=== PATIENT | female | born 1950 | race Caucasian/White ===

== ENCOUNTER → 2017-12-16 09:24 | Outpatient (REF) | payer OTHER, SELFPAY ==
[2017-12-16 15:02] LABS: ALT 37 U/L (12-78); AST 21 U/L (15-37); Albumin 4.1 g/dL (3.4-5.0); Alkaline Phosphatase 55 U/L (46-116); Anion Gap 9.4 mmol/L (3-11); BUN 18 mg/dL (7-18); Bilirubin, Total 0.9 mg/dL (0.2-1.0); CO2 24.6 mmol/L (21.0-32.0); CREATININE 0.84 mg/dL (0.55-1.02); Calcium 8.5 mg/dL (8.5-10.1); Chloride 106 mmol/L (98-107); Glucose 124 mg/dL (70-100); Sodium 140 mmol/L (136-145); Total Protein 6.8 g/dL (6.4-8.2)
[2017-12-17 13:01] LABS: Hepatitis C Ab w Rflx HCV PCR Negative (NEGAT)
== END ==
LOC: NCHCN 09:24
PROVIDERS: PCP Nurse Practitioner Family; Visit Provider Nurse Practitioner Family
DX: R03.0 Elevated blood-pressure reading, without diagnosis of hypertension (principal); R00.8 Other abnormalities of heart beat; D75.89 Other specified diseases of blood and blood-forming organs; J01.90 Acute sinusitis, unspecified; R13.10 Dysphagia, unspecified; K21.9 Gastro-esophageal reflux disease without esophagitis; G25.81 Restless legs syndrome; G47.33 Obstructive sleep apnea (adult) (pediatric)
CPT/HCPCS: 80053; 86803

== ENCOUNTER 2018-12-29 14:58 | Outpatient (REF) | payer OTHER, SELFPAY ==
[2018-12-29 21:12] LABS: Abs Immature Grans 0.02 k/cumm (0.0-0.09); Absolute Basophil Count 0.01 k/cumm (0.0-0.2); Absolute Eosinophil Count 0.14 k/cumm (0.0-0.7); Absolute Lymphocyte Count 2.02 k/cumm (1.2-3.4); Absolute Monocyte Count 0.46 k/cumm (0.11-0.7); Absolute Neutrophil Count 3.92 k/cumm (1.2-6.7); Basophils % 0.2; Eosinophils % 2.1; HCT 34.8 % (36.0-46.0); HGB 11.9 g/dL (12.0-15.5); Immature Grans % 0.3; Lymphocytes % 30.7; Mean Corp. HGB Concentration 34.2 g/dL (32.0-36.0); Mean Corpuscular Hemoglobin 33.3 pg (27.0-33.0); Mean Corpuscular Volume 97.5 fL (80-95); Mean Platelet Volume 11.4 fL (8.0-11.0); Neutrophils % 59.7; Platelet Count 223 x1000/uL (130-400); RBC 3.57 m/cumm (4.00-5.20); RBC Distribution Width 12.6 % (11.7-14.6); White Blood Cell Count 6.57 k/cumm (4.4-10.8)
[2018-12-29 21:47] LABS: Hemoglobin A1C 5.6 % (4.5-6.2)
[2018-12-29 21:54] LABS: ALT 38 U/L (12-78); AST 26 U/L (15-37); Alkaline Phosphatase 60 U/L (46-116); BUN 23 mg/dL (7-18); Bilirubin, Total 0.8 mg/dL (0.2-1.0); CREATININE 0.81 mg/dL (0.55-1.02); Calcium 8.5 mg/dL (8.5-10.1); Chloride 105 mmol/L (98-107); Glucose 144 mg/dL (70-100); Magnesium 1.8 mg/dL (1.8-2.4); Potassium 3.7 mmol/L (3.5-5.1); Sodium 141 mmol/L (136-145); Total Protein 6.8 g/dL (6.4-8.2); Vitamin B12 638 pg/mL (193-986)
[2018-12-29 22:13] LABS: Folate > 20.0 ng/mL (8.6-20.0)
== END 2018-12-29 15:18 ==
LOC: NCHCN 14:58
PROVIDERS: PCP Nurse Practitioner Family; Visit Provider Nurse Practitioner Family
DX: D75.89 Other specified diseases of blood and blood-forming organs (principal); K21.9 Gastro-esophageal reflux disease without esophagitis; R13.10 Dysphagia, unspecified; R53.83 Other fatigue; N39.3 Stress incontinence (female) (male); R03.0 Elevated blood-pressure reading, without diagnosis of hypertension; M79.671 Pain in right foot; L98.9 Disorder of the skin and subcutaneous tissue, unspecified
CPT/HCPCS: 80053; 82607; 82746; 83036; 83735; 85025

== ENCOUNTER 2019-01-25 16:42 | Outpatient (REF) | payer OTHER, SELFPAY ==
--- NOTE | 2019-01-25 15:40 | PAPFT_PTH ---
PATIENT: Delicia Arcos LOC: [facility] U#:[id number] AGE/SX: 68/F ROOM: RE01/25/[address]: Aileen Schaffer : 1950 BED: DIS: 01/25/2019 SPEC #: [id number] RECD: 01/25/19 18:33 STATUS: RG REQ #: [id number] RAMOS: 01/25/19 15:[address]: Aileen Schaffer DEPT: [facility] Cytology RECD BY: Marah Almaraz ENTERED: 01/25/19 18:33 SP TYPE: PAPFT ALEJANDRA DR: Elina Fernandez Tissues: 1 - CX/ENDOCX FOR PAP SMEARS Procedures: PAP THIN PREP/UVM Screening HPV DNA PROBE Comments: [id number]
== END 2019-01-25 17:02 ==
LOC: LBN 16:42
PROVIDERS: PCP Nurse Practitioner Family; Visit Provider Obstetrics & Gynecology Gynecology
DX: Z12.4 Encounter for screening for malignant neoplasm of cervix (principal); Z11.51 Encounter for screening for human papillomavirus (HPV)
CPT/HCPCS: 88142; 87624

== ENCOUNTER 2019-02-24 01:31 | Outpatient (CLI) | payer OTHER, SELFPAY ==
--- NOTE | 2019-02-24 11:00 | DI.MAMMO_ITS ---
EXAM: MAMMO SCREENING CLINICAL HISTORY: screening TECHNIQUE: Mammograms were interpreted according to the usual protocol including computer analysis w [employer] CAD system, tomosynthesis and C-view imaging. COMPARISON: [id number] FINDINGS: The breasts are composed of scattered areas of fibroglandular density, breast density category B. No dominant masses or microcalcifications are seen. Examination is compared with prior examinations from 2012 and 2013 and there has been no significant interval change. IMPRESSION: There is no evidence of malignancy. Yearly screening examinations are recommended. Category 1. BI-RADS Cat 1 - Negative Breast Density - Category B - Scattered areas of fibroglandular density
== END 2019-02-24 01:51 ==
PROVIDERS: PCP Nurse Practitioner Family; Visit Provider Obstetrics & Gynecology Gynecology
DX: Z12.31 Encounter for screening mammogram for malignant neoplasm of breast (principal)
CPT/HCPCS: 77063; 77067

== ENCOUNTER 2019-03-29 13:18 | Outpatient (REF) | payer OTHER, SELFPAY ==
[2019-03-29 21:01] LABS: Abs Immature Grans 0.01 k/cumm (0.0-0.09); Absolute Basophil Count 0.01 k/cumm (0.0-0.2); Absolute Eosinophil Count 0.08 k/cumm (0.0-0.7); Absolute Lymphocyte Count 1.78 k/cumm (1.2-3.4); Absolute Monocyte Count 0.36 k/cumm (0.11-0.7); Absolute Neutrophil Count 3.47 k/cumm (1.2-6.7); Basophils % 0.2; Eosinophils % 1.4; HGB 12.2 g/dL (12.0-15.5); Immature Grans % 0.2; Lymphocytes % 31.2; Mean Corp. HGB Concentration 33.9 g/dL (32.0-36.0); Mean Corpuscular Hemoglobin 33.2 pg (27.0-33.0); Mean Corpuscular Volume 98.1 fL (80-95); Monocytes % 6.3; Neutrophils % 60.7; Platelet Count 244 x1000/uL (130-400); RBC 3.67 m/cumm (4.00-5.20); RBC Distribution Width 12.7 % (11.7-14.6); White Blood Cell Count 5.71 k/cumm (4.4-10.8)
[2019-03-29 21:47] LABS: Iron 108 ug/dL (50-175); Total Iron Binding Capacity 312 ug/dL (250-450); Transferrin Sat 35 % (15-50)
== END 2019-03-29 13:38 ==
LOC: NCHCN 13:18
PROVIDERS: PCP Nurse Practitioner Family; Visit Provider Nurse Practitioner Family
DX: D75.89 Other specified diseases of blood and blood-forming organs (principal); E78.5 Hyperlipidemia, unspecified; R53.83 Other fatigue; R06.09 Other forms of dyspnea; M79.671 Pain in right foot; M25.521 Pain in right elbow; G25.81 Restless legs syndrome; G47.33 Obstructive sleep apnea (adult) (pediatric)
CPT/HCPCS: 83540; 83550; 85025

== ENCOUNTER 2019-07-06 11:29 | Outpatient (REF) | payer OTHER, SELFPAY | END 2019-07-06 11:49 | LOC: NCHCN 11:29 | PROVIDERS: PCP Nurse Practitioner Family; Visit Provider Nurse Practitioner Family | DX: R06.09 Other forms of dyspnea (principal); R53.83 Other fatigue; E83.51 Hypocalcemia; N39.3 Stress incontinence (female) (male); D75.89 Other specified diseases of blood and blood-forming organs; M25.512 Pain in left shoulder; M25.521 Pain in right elbow; M85.80 Other specified disorders of bone density and structure, unspecified site | CPT/HCPCS: 82306 ==

== ENCOUNTER 2019-08-20 10:33 | Outpatient (CLI) | payer OTHER, SELFPAY | END 2019-08-20 10:53 | PROVIDERS: PCP Nurse Practitioner Family; Visit Provider Internal Medicine Interventional Cardiology | DX: I49.3 Ventricular premature depolarization (principal); I47.1 Supraventricular tachycardia | CPT/HCPCS: 93225 ==

== ENCOUNTER 2019-08-23 09:02 | Outpatient (CLI) | payer OTHER, SELFPAY ==
--- NOTE | 2019-08-23 10:55 | W.HOLTRPT ---
Date of service: 08/23/19 Time of Service: 10:55 Holter Monitor Report Holter Monitor Note: There is a 2-day Holter monitor ordered for the indication of PVCs. ?The patient was in normal sinus rhythm for the majority of the recording. ?Patient had one episode of supraventricular tachycardia which lasted 9 beats. There were rare PACs. ?There were no episodes of ventricular tachycardia. ?There were occasional (4%) single ventricular ectopic beats as well as occasional couplets (3%) and triplets (1%). ?There were no episodes of atrial fibrillation, pauses greater than 3 seconds or evidence of high degree heart block. ?There were no patient triggered events.
== END 2019-08-23 09:22 ==
PROVIDERS: PCP Nurse Practitioner Family; Visit Provider Internal Medicine Interventional Cardiology
DX: I49.3 Ventricular premature depolarization (principal); I47.1 Supraventricular tachycardia
CPT/HCPCS: 93226

== ENCOUNTER 2019-10-18 04:12 | Outpatient (CLI) | payer OTHER, SELFPAY ==
[2019-10-19 14:18] LABS: COVID-19 RT-PCR UVMMC Result Negative (Negative)
== END 2019-10-18 04:32 ==
PROVIDERS: PCP Nurse Practitioner Family; Visit Provider Family Medicine
DX: Z11.59 Encounter for screening for other viral diseases (principal)
CPT/HCPCS: U0003

== ENCOUNTER 2019-10-20 01:38 | Outpatient (CLI) | payer OTHER, SELFPAY ==
--- NOTE | 2019-10-22 10:08 | W.PFT ---
Date of service: 10/20/19 Time of Service: 13:07 Pulmonary Function Test Result Interpretation Spirometry: Spirometry shows no evidence of obstructive airways disease, no bronchodilator response Lung Volumes: Lung volumes show no evidence of restriction Diffusion Capacity: Diffusion capacity is borderline mildly reduced, this is normal when corrected to alveolar volume Airway Pressure: Airways resistance is normal Impression Overall normal pulmonary function study there is borderline mild diffusion defect which is normal when corrected to alveolar volume. This may be an effort related phenomenon. If underlying early, developing interstitial lung disease is suspected, further clinical work-up is recommended. Clinical Correlation therefore is recommended.
== END 2019-10-20 01:58 ==
PROVIDERS: PCP Nurse Practitioner Family; Visit Provider Internal Medicine Interventional Cardiology
DX: R06.09 Other forms of dyspnea (principal); Z87.891 Personal history of nicotine dependence
CPT/HCPCS: 94060; 94726; 94729

== ENCOUNTER 2019-12-28 10:28 | Outpatient (REF) | payer OTHER, SELFPAY ==
[2019-12-28 22:04] LABS: Abs Immature Grans 0.02 10^3/uL (0.0-0.06); Absolute Basophil Count 0.01 10^3/uL (0.0-0.2); Absolute Eosinophil Count 0.05 10^3/uL (0.0-0.7); Absolute Lymphocyte Count 1.56 10^3/uL (1.2-3.4); Absolute Monocyte Count 0.22 10^3/uL (0.1-0.8); Basophils % 0.2; Eosinophils % 1.1; HCT 33.5 % (36.0-46.0); HGB 11.3 g/dL (11.2-15.7); Immature Grans % 0.4; Lymphocytes % 33.5; MCH 33.6 pg (27.0-33.0); MCHC 33.7 % (32.0-36.0); MCV 99.7 fL (80-95); MPV 11.2 fL (8.0-11.0); Monocytes % 4.7; Neutrophils % 60.1; Nucleated RBC 0 %; Platelet Count 208 10^3/uL (130-400); RBC 3.36 10^6/uL (3.93-5.22); RDW 12.4 % (11.7-14.6); RDW-SD 44.7 fL; WBC 4.66 10^3/uL (4.4-10.8)
[2019-12-28 23:04] LABS: ALT 35 U/L (14-59); AST 17 U/L (15-37); Albumin 4.2 g/dL (3.4-5.0); Alkaline Phosphatase 64 U/L (46-116); Anion Gap 14.9 mmol/L (3-11); BUN 18 mg/dL (7-18); Bilirubin, Total 0.7 mg/dL (0.2-1.0); CO2 21.1 mmol/L (21.0-32.0); CREATININE 0.77 mg/dL (0.55-1.02); Chloride 108 mmol/L (98-107); Glucose 145 mg/dL (74-106); Magnesium 1.8 mg/dL (1.8-2.4); Potassium 3.8 mmol/L (3.5-5.1); Sodium 144 mmol/L (136-145); Total Protein 6.9 g/dL (6.4-8.2); Vitamin B12 620 pg/mL (193-986)
[2019-12-28 23:05] LABS: Folate > 20.0 ng/mL (8.6-20.0)
== END 2019-12-28 10:48 ==
LOC: NCHCN 10:28
PROVIDERS: PCP Nurse Practitioner Family; Visit Provider Nurse Practitioner Family
DX: D64.9 Anemia, unspecified (principal); D75.89 Other specified diseases of blood and blood-forming organs; R53.83 Other fatigue; G25.81 Restless legs syndrome; N39.3 Stress incontinence (female) (male); R06.09 Other forms of dyspnea; K21.9 Gastro-esophageal reflux disease without esophagitis; I51.7 Cardiomegaly; M25.512 Pain in left shoulder
CPT/HCPCS: 80053; 82607; 82746; 83735; 85025

== ENCOUNTER 2020-01-05 11:47 | Outpatient (REF) | payer OTHER, SELFPAY ==
[2020-01-05 21:02] LABS: Hemoglobin A1C 5.9 % (3.8-5.6)
== END 2020-01-05 12:07 ==
LOC: NCHCN 11:47
PROVIDERS: PCP Nurse Practitioner Family; Visit Provider Nurse Practitioner Family
DX: R73.9 Hyperglycemia, unspecified (principal)
CPT/HCPCS: 83036

== ENCOUNTER 2020-01-13 04:38 | Outpatient (CLI) | payer OTHER, SELFPAY ==
--- NOTE | 2020-02-02 11:55 | RESPIRATORY ---
Cardiac Event Report Day was called and faxed to [facility].
--- NOTE | 2020-02-18 08:44 | W.CARDEVENT ---
Date of service: 02/18/20 Time of Service: 08:44 Cardiac Event Recorder Referring Provider:: judit Indications:: PVC Cardiac Event Note: This is a 30-day event recorder ordered for indication of PVCs. ?The patient was in normal sinus rhythm for the majority of the recording with an average heart rate of 80 bpm. ?There was one episode of NSVT which lasted 7 beats. ?There were frequent PVCs with evidence of bigeminy. Patient reported symptoms associated with PVCs and bigeminy. ?There were no episodes of atrial fibrillation, no pauses greater than 3 seconds and no evidence of high degree heart block.
== END 2020-01-13 04:58 ==
PROVIDERS: PCP Nurse Practitioner Family; Visit Provider Internal Medicine Interventional Cardiology
DX: I49.3 Ventricular premature depolarization (principal); I47.1 Supraventricular tachycardia; R00.8 Other abnormalities of heart beat
CPT/HCPCS: 93270

== ENCOUNTER 2020-03-06 13:40 | Outpatient (REF) | payer OTHER, SELFPAY ==
[2020-03-10 08:51] LABS: Patient Race White; SARS-CoV-2 RNA Undetected (Undetected); SARS-CoV-2 Specimen Source Nasal
== END 2020-03-06 14:00 ==
LOC: NCHCN 13:40
PROVIDERS: PCP Nurse Practitioner Family; Visit Provider Nurse Practitioner Family
DX: Z20.828 Contact with and (suspected) exposure to other viral communicable diseases (principal)
CPT/HCPCS: U0003

== ENCOUNTER 2020-03-15 01:16 | Outpatient (CLI) | payer OTHER, SELFPAY ==
--- NOTE | 2020-03-15 11:32 | DI.MAMMO_ITS ---
EXAM: MG MAMMO SCREENING CLINICAL HISTORY: screening,Z12.31 TECHNIQUE: Bilateral full field digital CC and MLO mammographic images were obtained with 3D tomosyn thesis and utilizing computer aided detection (CAD). COMPARISON: Available for comparison. FINDINGS: Masses/Architectural Distortion: Asymmetric density in the upper left breast on the MLO view. Microcalcifications: No suspicious pleomorphic-type are seen. Skin Thickening/Nipple Retraction: None. IMPRESSION: 1. Asymmetric density in the upper left breast on the MLO view. 2. Additional view of the left breast and left breast ultrasound are requested for further evaluation . BI-RADS Category 0 - Assessment Incomplete: Need additional imaging evaluation Breast Density - Category B - Scattered areas of fibroglandular density A negative radiographic report should not delay biopsy if a dominant or clinically suspicious mass is present. Up to ten percent of cancers are not identified on mammography. A negative report may reinforce clinical impression. Adenosis and dense breasts may obscure an underlying neoplasm. False positive reports average 6 to 10%. Patient will receive a letter notifying them of these results.
== END 2020-03-15 01:36 ==
PROVIDERS: PCP Nurse Practitioner Family; Visit Provider Nurse Practitioner Family
DX: Z12.31 Encounter for screening mammogram for malignant neoplasm of breast (principal); R92.8 Other abnormal and inconclusive findings on diagnostic imaging of breast
CPT/HCPCS: 77063; 77067

== ENCOUNTER 2020-03-16 00:38 | Outpatient (CLI) | payer OTHER, SELFPAY ==
--- NOTE | 2020-03-17 | DI.US_ITS ---
EXAM: MG MAMMO SCREEN CALL BACK UNI and U/S breast LT limited CLINICAL HISTORY: F/U MAMMO, ASYMMETRIC DENSITY, UPPER LT BREAST ON MLO VIEW. TECHNIQUE: Craniocaudal and mediolateral oblique Full Field Digital Mammography views of the left br east with Computer Aided Diagnosis followed by Tomosynthesis and left breast ultrasound. COMPARISON: Priors available for comparison. FINDINGS: Mammography/Tomosynthesis: Masses/Architectural Distortion: None seen. Microcalcifictions: No suspicious pleomorphic-type are seen. Skin Thickening/Nipple Retraction: None. Left breast US: Echotexture: Normal appearance of the glandular tissue. Shadowing: No suspicious foci. Cyst: None. Solid lesions: None seen. Ductal dilation: None. IMPRESSION: 1. No evidence of malignancy is noted. 2. A six-month follow-up left mammogram is recommended for re-evaluation. 3. The findings were discussed with the patient on the date of the examination. BI-RADS Category 3 - 6 month - Probably Benign Finding: Recommend follow-up mammography in 6 months Breast Density - Category B - Scattered areas of fibroglandular density A negative radiographic report should not delay biopsy if a dominant or clinically suspicious mass is present. Up to ten percent of cancers are not identified on mammography. A negative report may reinforce clinical impression. Adenosis and dense breasts may obscure an underlying neoplasm. False positive reports average 6 to 10%. Patient will receive a letter notifying them of these results.
== END 2020-03-16 00:58 ==
PROVIDERS: PCP Nurse Practitioner Family; Visit Provider Obstetrics & Gynecology Gynecology
DX: R92.8 Other abnormal and inconclusive findings on diagnostic imaging of breast (principal)
CPT/HCPCS: 76642; 77063; 77067

== ENCOUNTER 2020-09-12 01:45 | Outpatient (CLI) | payer OTHER, SELFPAY ==
--- NOTE | 2020-09-12 | DI.DEXA_ITS ---
Exam(s) XR DEXA BONE DENSITY W/WO LUCY EXAM: XR DEXA BONE DENSITY W/WO LUCY CLINICAL HISTORY: OTHER BONE DISORDER OF BONE DENSITY,M85.88 TECHNIQUE: COMPARISON: Comparison examination is 12/26/2015. FINDINGS: Lateral Spine Image: Unremarkable. No compression deformities identified. Left hip: Total T-Score: -1.2. This compares to -1.0 on the prior examination. Total Z-Score: 0.4 T- and Z-scores: Findings are consistent with osteopenia. Lumbar Spine: Total T-Score: -1.1. This compares to -2.2 on the prior examination. Total Z-Score: 1.0 T- and Z-scores: Findings consistent with osteopenia. IMPRESSION: Findings of osteopenia in the lumbar spine and left hip.
== END 2020-09-12 02:05 ==
PROVIDERS: PCP Nurse Practitioner Family; Visit Provider Nurse Practitioner Family
DX: M85.88 Other specified disorders of bone density and structure, other site (principal)
CPT/HCPCS: 77080

== ENCOUNTER 2020-09-20 02:24 | Outpatient (CLI) | payer OTHER, SELFPAY ==
--- NOTE | 2020-09-20 09:10 | DI.MAMMO_ITS ---
Exam(s) MG MAMMO DIAGNOSTIC UNI EXAM: MG MAMMO DIAGNOSTIC UNI-LEFT CLINICAL HISTORY: DIAGNOSTIC, 6 MO F/U, F/U ABNL MAMMO. TECHNIQUE: Unilateral spot mammographic images were obtained with 3D Tomosynthesistechnique and util izing computer aided detection (CAD). COMPARISON: Prior mammograms dating back to 2011, the most recent being March 2020. Ultrasound N ov2019 was also reviewed FINDINGS: Previously described finding in the left breast remains benign appearance. No new significant masses nor malignant-appearing microcalcification groups. IMPRESSION: No radiographic evidence of malignancy in left breast. Appropriate follow-up is to keep this patient yearly mammogram schedule, this implying the next bilat era mammogram would be in March 2021, with earlier imaging if a self detected breast changes note d.. The patient was informed of the findings and follow-up recommendations prior to leaving the [facility] today. BI-RADS Category 2 - Benign Findings Breast Density - Category B - Scattered areas of fibroglandular density Breast density Category C or D implies that the patient has dense breast tissue. Dense breast tissue can make it harder to find cancer on a mammogram. Dense breast tissue is also associated with an incr eased risk of breast cancer. This information about the result of the mammogram report was provided to the patient to raise their awareness. Use this report when you speak with the patient about their risks for breast cancer, which includes their family history. At that time, you may recommend additional screening tests (Ultrasoun d or MRI) as these tests may add significant information. A negative radiographic report should not delay biopsy if a dominant or clinically suspicious mass is present. Up to ten percent of cancers are not identified on mammography. A negative report may reinforce clinical impression. Adenosis and dense breasts may obscure an underlying neoplasm. False positive reports average 6 to 10%. Patient will receive a letter notifying them of these results.
== END 2020-09-20 02:44 ==
PROVIDERS: PCP Nurse Practitioner Family; Visit Provider Obstetrics & Gynecology Gynecology
DX: Z12.31 Encounter for screening mammogram for malignant neoplasm of breast (principal); R92.8 Other abnormal and inconclusive findings on diagnostic imaging of breast; N60.82 Other benign mammary dysplasias of left breast
CPT/HCPCS: 77061; 77065; G0279

== ENCOUNTER 2021-01-16 15:01 | Outpatient (REF) | payer OTHER, SELFPAY ==
[2021-01-16 20:42] LABS: Abs Immature Grans 0.02 10^3/uL (0.0-0.06); Absolute Basophil Count 0.03 10^3/uL (0.0-0.2); Absolute Eosinophil Count 0.09 10^3/uL (0.0-0.7); Absolute Lymphocyte Count 1.87 10^3/uL (1.2-3.4); Absolute Monocyte Count 0.32 10^3/uL (0.1-0.8); Absolute Neutrophil Count 2.87 10^3/uL (1.2-6.7); Basophils % 0.6; Eosinophils % 1.7; HCT 34.5 % (36.0-46.0); HGB 11.6 g/dL (11.2-15.7); Immature Grans % 0.4; MCH 33.2 pg (27.0-33.0); MCHC 33.6 % (32.0-36.0); MCV 98.9 fL (80-95); MPV 11.4 fL (8.0-11.0); Monocytes % 6.2; Neutrophils % 55.1; Nucleated RBC 0 %; Platelet Count 205 10^3/uL (130-400); RBC 3.49 10^6/uL (3.93-5.22); RDW 12.5 % (11.7-14.6); RDW-SD 44.7 fL
[2021-01-16 21:05] LABS: Hemoglobin A1C 5.8 % (<5.7)
[2021-01-16 21:26] LABS: ALT 42 U/L (14-59); AST 18 U/L (15-37); Albumin 4.5 g/dL (3.4-5.0); Alkaline Phosphatase 59 U/L (46-116); Anion Gap 11.9 mmol/L (3-11); BUN 13 mg/dL (7-18); Bilirubin, Total 0.9 mg/dL (0.2-1.0); CO2 24.1 mmol/L (21.0-32.0); CREATININE 0.8 mg/dL (0.55-1.02); Calcium 8.9 mg/dL (8.5-10.1); Chloride 108 mmol/L (98-107); Glucose 101 mg/dL (74-106); Potassium 4.2 mmol/L (3.5-5.1); Sodium 144 mmol/L (136-145); Total Protein 7.2 g/dL (6.4-8.2); Vitamin B12 653 pg/mL (193-986)
[2021-01-16 21:27] LABS: Folate > 20.0 ng/mL (8.6-20.0)
== END 2021-01-16 15:02 | disposition home or self-care (01) ==
LOC: NCHCN 15:01
PROVIDERS: PCP Nurse Practitioner Family; Visit Provider Nurse Practitioner Family
DX: R73.03 Prediabetes (principal); D64.9 Anemia, unspecified; M25.521 Pain in right elbow; G25.81 Restless legs syndrome; N39.3 Stress incontinence (female) (male); R06.09 Other forms of dyspnea; G47.33 Obstructive sleep apnea (adult) (pediatric)
CPT/HCPCS: 80053; 82607; 82746; 83036; 83735; 85025

== ENCOUNTER 2021-04-02 11:13 | Outpatient (CLI) | payer OTHER, SELFPAY ==
--- NOTE | 2021-04-02 16:00 | DI.MAMMO_ITS ---
Exam(s) MAMMO SCREENING EXAM: MAMMO SCREENING CLINICAL HISTORY: screening TECHNIQUE: Mammograms were interpreted according to the usual protocol including computer analysis w [employer] CAD system, tomosynthesis and C-view imaging. COMPARISON: 2011 through 20 Sep 2020 FINDINGS: The breasts are composed of scattered fibroglandular densities, Breast Density category B. No suspicious masses or suspicious microcalcifications are seen. Vascular calcifications are noted. No skin thickening or abnormal axillary lymph nodes are seen. There has been no significant change from prior exams. IMPRESSION: BI-RADS Category 1, Negative mammogram Yearly screening mammography is recommended. Breast Density - Category B, scattered fibroglandular densities. A negative radiographic report should not delay biopsy if a dominant or clinically suspicious mass is present. Up to ten percent of cancers are not identified on mammography. A negative report may reinforce clinical impression. Adenosis and dense breasts may obscure an underlying neoplasm. False positive reports average 6 to 10%. Patient will receive a letter notifying them of these results.
== END 2021-04-02 11:33 ==
PROVIDERS: PCP Nurse Practitioner Family; Visit Provider Obstetrics & Gynecology Gynecology
DX: Z12.31 Encounter for screening mammogram for malignant neoplasm of breast (principal)
CPT/HCPCS: 77063; 77067

== ENCOUNTER 2021-08-21 02:29 | Outpatient (CLI) | payer OTHER, SELFPAY ==
--- NOTE | 2021-08-21 10:30 | DI.US_ITS ---
APPROVED REPORT EXAM: Comprehensive 2D, Doppler, and color-flow Echocardiogram Patient Location: Out-Patient [place] Attendant: Shannon Adhikari RDCS (AE) Indications: Lt atrial enlargement, Ventricular arrhythmia Other Information Study Quality: Adequate Conclusion Normal left ventricular wall thickness and chamber size. Estimated ejection fraction is 50 to 55%. There are no segmental wall motion abnormalities Normal right ventricular size and systolic function The left atrium is moderately dilated. Right atrium is mildly dilated Normal mitral valve with mild regurgitation Normal tricuspid valve with mild regurgitation. Estimated right ventricular systolic pressure is 32 mmHg Trileaflet aortic valve without stenosis or regurgitation Wall motion Left Ventricle The left ventricle is normal size. The left ventricular systolic function is normal. The left ventric ular ejection fraction is within the normal range. There is normal left ventricular wall thickness. T here is normal LV segmental wall motion. There is no ventricular septal defect visualized. LVEF is 50 -55%. Right Ventricle The right ventricle is normal size. The right ventricular systolic function is normal. The RVSP is 31 .8 mmHg. Atria Left atrium is moderately dilated. Right atrium is mildly dilated. The interatrial septum is intact w ith no evidence for an atrial septal defect. Aortic Valve The aortic valve is normal in structure. Aortic valve is trileaflet. There is no aortic valvular sten osis. No aortic regurgitation is present. Mitral Valve The mitral valve is normal in structure. No evidence of mitral valve stenosis. Mild mitral regurgitat ion. Tricuspid Valve The tricuspid valve is normal in structure. There is no tricuspid valve stenosis. Mild tricuspid regu rgitation. Pulmonic Valve The pulmonary valve is normal in structure. There is no pulmonic valvular stenosis. Mild pulmonic reg urgitation. Great Vessels The aortic root is normal in size. The ascending aorta is normal in size. Aortic arch is normal in ca liber. IVC is normal in size and collapses >50% with inspiration. Pericardium There is no pericardial effusion. 2D Dimensions IVSD d PLAX 1.00 cm F: 0.6-1.0 LV Vol A2C d MOD 93.6 mL LVPW d PLAX 1.02 cm F: 0.6 - 1.0 LV Vol A4C d MOD 121.7 mL LVID d PLAX 5.05 cm F: 3.8 - 5.2 LA vol/ BSA A2C s A-L 38.9 mL/m2 LVDs 3.70 cm F: 2.2 - 3.5 LA vol/ BSA A4C s A-L 38.6 mL/m2 Ao Root d 2.79 cm F: 2.7 - 3.3 LA Vol/ BSA Biplane s A-L 39.5 mL/m2 RA Area A4C 13.89 cm2 LA Area A4C s MOD 22.68 cm2 RA Vol/ BSA A4C s A-L 17.5 mL/m2 LA Area A2C s MOD 22.30 cm2 Ao Asc Diam d 3.46 cm F: 2.3 - 3.1 LV EF A4C MOD 50.4 % LV EF Teichholz 50.7 % LV EF A2C MOD 50.2 % LVEF (Celaya's) 50.93 % F: 54 - 74 LV EF Biplane MOD 50.9 % LV Volume 84.43 mL F: 46 - 106 SV 55.60 mL LV Volume Index 46.13 mL/m2 F: 29 - 61 SV Index 30.40 mL/m2 LV Vol Biplane MOD 109.2 mL FS 25.90 % M-Mode TAPSE 2.78 cm (M/F) >1.7 LV Diastology MV E' medial 0.056 (>0.07 m/s) E/A Ratio 0.9 LV E/e MED 10.10 (<14) MV E Vmax 0.57 (0.4-1.3 m/s) MV E' lateral 0.088 (>0.1 m/s) MV A Vmax 0.60 (0.4-1.3 m/s) LV E/e LAT 6.45 (<14) MV E/A Ratio 0.88 MV E/E' medial 10.12 MV E/E' lateral 6.47 Aortic Valve LVOT Area 3.62 cm2 AoV Area Vmax 2.36 cm2 LVOT Vmax 1.16 m/s AoV Area/ BSA (Vmax) 1.29 cm2/m2 LVOT Mean Rafael. 0.81 m/s KANCHAN Mean Rafael. 2.50 cm2 LVOT Peak Grad 5.3 mmHg KANCHAN Mean Rafael. Index 1.37 cm2/m2 LVOT Mean Grad 2.9 mmHg LVOT VTI 0.274 m LVOT Diam s 2.10 cm AoV Vmax 1.78 m/s Velocity Ratio 0.65 AoV Mean Rafael. 1.17 m/s AoV Peak Grad 12.6 mmHg LVOT SV 99.10 mL AoV Mean Grad 6.3 mmHg AoV VTI 0.379 m AoV Area VTI 2.61 cm2 AoV Area/ BSA (VTI) 1.43 cm/m2 Mitral Valve MV DT 203 (160-240 msec) MV PHT 59 msec MV Area PHT 3.74 cm2 MV VTI 0.303 m MV Area VTI 3.27 (4.0-6.0 cm2) Pulmonary Valve PV Vmax 0.93 (0.5-1.5 m/s) RVOT Peak Gr. 2.05 mmHg PV Peak Grad 3.5 mmHg RVOT Mean Gr. 1.30 mmHg PV Mean Grad 1.8 mmHg RVOT VTI 0.185 m PV VTI 0.233 m RVOT Vmax 0.72 m/s Tricuspid Valve TR Peak Grad 28.7 mmHg TR Vmax 2.68 m/s RA Pressure 3.00 mmHg RVSP (TR) 31.8 mmHg
== END 2021-08-21 02:49 ==
PROVIDERS: PCP Nurse Practitioner Family; Visit Provider Nurse Practitioner Family
DX: I51.7 Cardiomegaly (principal); I47.0 Re-entry ventricular arrhythmia
CPT/HCPCS: 93306

== ENCOUNTER 2022-02-18 12:33 | Outpatient (REF) | payer OTHER, SELFPAY ==
[2022-02-18 16:41] LABS: Abs Immature Grans 0.01 10^3/uL (0.0-0.06); Absolute Basophil Count 0.03 10^3/uL (0.0-0.2); Absolute Eosinophil Count 0.07 10^3/uL (0.0-0.7); Absolute Lymphocyte Count 1.82 10^3/uL (1.2-3.4); Absolute Monocyte Count 0.41 10^3/uL (0.1-0.8); Basophils % 0.6; Eosinophils % 1.3; HCT 34.2 % (36.0-46.0); HGB 11.9 g/dL (11.2-15.7); Immature Grans % 0.2; Lymphocytes % 34.7; MCH 34.1 pg (27.0-33.0); MCHC 34.8 % (32.0-36.0); MCV 98 fL (80-95); Monocytes % 7.8; Neutrophils % 55.4; Platelet Count 225 10^3/uL (130-400); RBC 3.49 10^6/uL (3.93-5.22); RDW 12.3 % (11.7-14.6); RDW-SD 43.7 fL; WBC 5.24 10^3/uL (4.4-10.8)
[2022-02-18 18:15] LABS: Hemoglobin A1C 5.7 % (<5.7)
[2022-02-18 18:53] LABS: Vitamin D 25 Total 47.1 ng/mL (30-100)
[2022-02-18 18:58] LABS: ALT 35 U/L (14-59); AST 18 U/L (15-37); Albumin 4.5 g/dL (3.4-5.0); Alkaline Phosphatase 55 U/L (46-116); Anion Gap 10.6 mmol/L (3-11); BUN 18 mg/dL (7-18); Bilirubin, Total 0.9 mg/dL (0.2-1.0); CO2 26.4 mmol/L (21.0-32.0); CREATININE 0.8 mg/dL (0.55-1.02); Calcium 9.3 mg/dL (8.5-10.1); Chloride 104 mmol/L (98-107); Estimated GFR 78.24 (mL/min/1.73m2); Glucose 83 mg/dL (74-106); Magnesium 1.8 mg/dL (1.8-2.4); Potassium 4.2 mmol/L (3.5-5.1); Sodium 141 mmol/L (136-145); Total Protein 7.4 g/dL (6.4-8.2); Vitamin B12 734 pg/mL (193-986)
[2022-02-21 12:03] LABS: c-ANCA Negative (Negative); p-ANCA Negative (Negative)
== END 2022-02-18 12:34 | disposition home or self-care (01) ==
LOC: NCHCN 12:33
PROVIDERS: PCP Nurse Practitioner Family; Visit Provider Nurse Practitioner Family
DX: R73.03 Prediabetes (principal); D64.9 Anemia, unspecified; D75.89 Other specified diseases of blood and blood-forming organs; R53.83 Other fatigue; E83.51 Hypocalcemia; E78.5 Hyperlipidemia, unspecified
CPT/HCPCS: 80053; 82306; 82607; 83036; 83735; 85025; 86255

== ENCOUNTER 2022-05-21 01:57 | Outpatient (CLI) | payer OTHER, SELFPAY ==
--- NOTE | 2022-05-21 11:03 | DI.MAMMO_ITS ---
Exam(s) MAMMO SCREENING EXAM: MAMMO SCREENING CLINICAL HISTORY: screening TECHNIQUE: Bilateral full field digital CC and MLO mammographic images were obtained with 3D tomosyn thesis and utilizing computer aided detection (CAD). COMPARISON: Available for comparison. FINDINGS: Masses/Architectural Distortion: None seen. Microcalcifications: No suspicious pleomorphic-type are seen. Skin Thickening/Nipple Retraction: None. IMPRESSION: 1. No significant interval change with no specific features of malignancy noted. 2. Unless there is more urgent need, screening mammography is recommended, as per [employer] guidelines. BI-RADS Category 1 - Negative Breast Density - Category B - Scattered areas of fibroglandular density Breast density category C or D implies that the patient has dense breast tissue. Dense breast tissue is very common and is not abnormal but dense breast tissue can make it harder to find cancer on a ma mmogram. Also, dense breast tissue may increase their breast cancer risk. This information about the result of the mammogram report was provided to the patient to raise their awareness. Use this report when you speak with the patient about their risks for breast cancer, which includes their family hist ory. At that time, you may recommend for more screening tests (Ultrasound or MRI) as they might be us eful based on their risk. A negative radiographic report should not delay biopsy if a dominant or clinically suspicious mass is present. Up to ten percent of cancers are not identified on mammography. A negative report may reinforce clinical impression. Adenosis and dense breasts may obscure an underlying neoplasm. False positive reports average 6 to 10%. Patient will receive a letter notifying them of these results.
== END 2022-05-21 02:17 ==
LOC: DI 01:57
PROVIDERS: PCP Nurse Practitioner Family; Visit Provider Obstetrics & Gynecology Gynecology
DX: Z12.31 Encounter for screening mammogram for malignant neoplasm of breast (principal)
CPT/HCPCS: 77063; 77067

== ENCOUNTER 2022-08-26 14:13 | Outpatient (REF) | payer OTHER, SELFPAY ==
[2022-08-26 21:39] LABS: Abs Immature Grans 0.02 10^3/uL (0.0-0.06); Absolute Basophil Count 0.02 10^3/uL (0.0-0.2); Absolute Eosinophil Count 0.07 10^3/uL (0.0-0.7); Absolute Lymphocyte Count 2.14 10^3/uL (1.2-3.4); Absolute Monocyte Count 0.27 10^3/uL (0.1-0.8); Absolute Neutrophil Count 2.52 10^3/uL (1.2-6.7); Basophils % 0.4; Eosinophils % 1.4; HGB 11.5 g/dL (11.2-15.7); Immature Grans % 0.4; Lymphocytes % 42.5; MCH 34.3 pg (27.0-33.0); MCHC 34.8 % (32.0-36.0); MCV 99 fL (80-95); MPV 11.1 fL (8.0-11.0); Monocytes % 5.4; Neutrophils % 49.9; Nucleated RBC 0.4 % (0.0-0.3); Platelet Count 203 10^3/uL (130-400); RBC 3.35 10^6/uL (3.93-5.22); RDW 12.2 % (11.7-14.6); RDW-SD 43.8 fL; WBC 5.04 10^3/uL (4.4-10.8)
[2022-08-26 21:54] LABS: Iron 119 ug/dL (50-170); Total Iron Binding Capacity 315 ug/dL (250-450); Transferrin Sat 38 % (15-50)
[2022-08-26 22:09] LABS: Ferritin 496 ng/mL (8-252)
[2022-08-26 22:16] LABS: Folate > 20.0 ng/mL (8.6-20.0)
== END 2022-08-26 14:14 | disposition home or self-care (01) ==
LOC: NCHCN 14:13
PROVIDERS: PCP Nurse Practitioner Family; Visit Provider Nurse Practitioner Family
DX: R73.03 Prediabetes (principal); D75.89 Other specified diseases of blood and blood-forming organs; E83.51 Hypocalcemia; E78.5 Hyperlipidemia, unspecified; D64.9 Anemia, unspecified; M85.88 Other specified disorders of bone density and structure, other site
CPT/HCPCS: 82728; 82746; 83540; 83550; 85025

== ENCOUNTER 2022-09-12 01:16 | Outpatient (CLI) | payer OTHER, SELFPAY ==
--- NOTE | 2022-09-12 | DI.US_ITS ---
Exam(s) US ABDOMEN EXAM: US ABDOMEN CLINICAL HISTORY: ELEVATED FERRITIN R78.89 TECHNIQUE: Ultrasound abdomen performed using standard protocol. COMPARISON: No priors for comparison. FINDINGS: ABDOMINAL AORTA AND IVC: Visualized portions normal caliber. PANCREAS: Normal where visualized. LIVER: There is diffuse increased echogenicity of the liver. This is consistent with fatty infiltrat ion. The liver measures 19.5 cm long. Hepatopedal flow in the Portal Vein. GALLBLADDER:No evidence of cholelithiasis. No evidence of wall thickening. No pericholecystic fluid i dentified. BILIARY SYSTEM: Common bile duct measures < 7 mm. No intrahepatic biliary ductal dilation. GOOD'S SIGN: Negative. KIDNEYS: Kidneys are symmetric in size. There is a 0.9 cm echogenic focus in the right kidney suggest ing a nonobstructing stone. No evidence of hydronephrosis. No renal mass or cyst identified. SPLEEN: Not enlarged. ASCITES: None seen. IMPRESSION: 1. Hepatomegaly and fatty infiltration of the liver. 2. 9 mm echogenic shadowing focus in the right kidney which may represent a nonobstructing stone. DATA REPOSITORY:
== END 2022-09-12 01:36 ==
LOC: DI 01:16
PROVIDERS: PCP Nurse Practitioner Family; Visit Provider Nurse Practitioner Family
DX: K76.0 Fatty (change of) liver, not elsewhere classified (principal)
CPT/HCPCS: 76700

== ENCOUNTER 2023-02-28 00:46 | Outpatient (CLI) | payer OTHER, SELFPAY ==
--- NOTE | 2023-02-28 07:30 | DI.US_ITS ---
APPROVED REPORT EXAM: Comprehensive 2D, Doppler, and color-flow Echocardiogram Patient Location: Out-Patient [place] Manager: Connor Roa RDCS (AE) Indications: Chest tightness, atrial enlargement, ventricular bigeminy, ventricular arrythmia Other Information Study Quality: Good Conclusion Left ventricular wall thickness and chamber size. Ejection fraction is 60%. Wall motion is normal Normal right ventricular size and systolic function Left atrium is severely dilated. Right atrial size is normal Aortic valve is trileaflet and mildly sclerotic with trace regurgitation Normal mitral valve with moderate eccentric mitral regurgitation Normal tricuspid valve with mild regurgitation. Estimated right ventricular systolic pressure is 41 mmHg Borderline dilated ascending aorta measuring 3.4 cm Wall motion Left Ventricle The left ventricle is normal size. The left ventricular systolic function is normal. The left ventric ular ejection fraction is within the normal range. There is normal left ventricular wall thickness. T here is normal LV segmental wall motion. There is no ventricular septal defect visualized. LVEF is 60 %. Right Ventricle The right ventricle is normal size. Right ventricular systolic function is grossly normal. The RVSP i s 41.4 mmHg. Atria Left atrium is severely dilated. The right atrium size is normal. The interatrial septum is intact wi th no evidence for an atrial septal defect. Aortic Valve The Aortic valve is mildly sclerotic. Aortic valve is trileaflet. There is no aortic valvular stenosi s. Trivial aortic regurgitation. Mitral Valve The mitral valve is normal in structure. No evidence of mitral valve stenosis. Moderate eccentric matt ral regurgitation. Tricuspid Valve The tricuspid valve is normal in structure. There is no tricuspid valve stenosis. Mild tricuspid regu rgitation. Pulmonic Valve The pulmonary valve is normal in structure. There is no pulmonic valvular stenosis. Moderate pulmonic regurgitation. Great Vessels The aortic root is normal in size. The ascending aorta is mildly dilated. Aortic arch is normal in ca liber. IVC is normal in size and collapses >50% with inspiration. Pericardium There is no pericardial effusion. 2D Dimensions IVSD d PLAX 0.88 cm F: 0.6-1.0 Ao Root d 2.78 cm F: 2.7 - 3.3 LVPW d PLAX 0.95 cm F: 0.6 - 1.0 Ao Asc Diam d 3.40 cm F: 2.3 - 3.1 LVID d PLAX 4.93 cm F: 3.8 - 5.2 LVDs 3.68 cm F: 2.2 - 3.5 LV EF Teichholz 49.9 % FS 25.40 % LV EDV (Teich) 114.4 mL LV ESV (Teich) 57.3 mL Stroke Vol Index (Teich) 31.73 M-Mode TAPSE 2.16 cm (M/F) >1.7 Auto EF LV EDV A4C 99.9 mL LV EDV A2C 106.9 mL LV EDV BP 102.4 mL LV ESV A4C 45.2 mL LV ESV A2C 53.7 mL LV ESV BP 48.4 mL LVEF(%) A4C 54.7 % LVEF(%) A2C 49.8 % LVEF(%) BP 52.8 % LV SV A4C 54.7 ml LV SV A2C 53.2 ml LV SV BP 54.0 ml LV CO A4C 3.1 L/min LV CO A2C 2.9 L/min LV CO BP 3.0 L/min HR A4C 56.34 BPM HR A2C 53.73 BPM LV EDV Index (BP) LA Volume LA Length A4C 6.9 cm LA Length A2C LA Area A4C s 29.07 cm2 LA Area A2C s LA Vol A4C A-L 103.29 mL LA Vol A2C A-L LA Vol Biplane A-L LA Vol A4C MOD 101.9 mL LA Vol A2C MOD LA Vol BP MOD RA Volume RA Area A4C 10.5 cm2 RA ESV A4C (A-L) 21.0mL RA Vol/BSA A4C A-L RA Length A4C 4.4 cm RA ESV A4C (MOD) 21.4mL LV Diastology MV E' medial 0.067 (>0.07 m/s) MV E Vmax 0.77 (0.4-1.3 m/s) MV E/E' MED 11.51 (<14) MV A Vmax 0.60 (0.4-1.3 m/s) MV E' lateral 0.077 (>0.1 m/s) E/A Ratio 1.3 MV E/E' LAT 10.04 (<14) MV E' Average 0.072 m/s MV E/E'(average) 10.72 Aortic Valve AoV Vmax 1.63 m/s LVOT Vmax 1.09 m/s AoV Peak Grad 10.6 mmHg LVOT Peak Grad 4.8 mmHg AoV Area (Vmax) 2.04 cm2 LVOT VTI 0.292 m AoV VTI 0.414 m LVOT Mean Grad 2.6 mmHg AoV Mean Rafael. 1.11 m/s LVOT SV 88.74 mL AoV Mean Grad 5.6 mmHg LVOT Diam s 1.95 cm AoV Area (VTI) 2.15 cm2 Velocity Ratio 0.67 Mitral Valve MV DT 177 (160-240 msec) MR Vmax 4.90 m/s MV Vmax TIPS 0.82 m/s MR VTI 1.971 m MV Mean Grad 0.8 (<2mmHg) MR Peak Grad 95.9 mmHg MV VTI 0.365 m MR Mean Grad 63.8 mmHg MR PISA Radius 0.55 cm MR Aliasing Velocity 0.60 m/s Pulmonary Valve PV Vmax 0.91 (0.5-1.5 m/s) RVOT Vmax 0.70 m/s PV Peak Grad 3.3 mmHg RVOT Peak Gr. 2.0 mmHg PV Mean Rafael 0.70 m/s RVOT VTI 0.203 m PV Mean Grad 2.2 mmHg RVOT Mean Gr. 1.2 mmHg Tricuspid Valve RA Pressure 3.00 mmHg TR Vmax 3.10 m/s TR Peak Grad 38.4 mmHg RVSP (TR) 41.4 mmHg
== END 2023-02-28 01:06 ==
LOC: DI 00:46
PROVIDERS: PCP Nurse Practitioner Family; Visit Provider Nurse Practitioner Family
DX: R07.89 Other chest pain (principal)
CPT/HCPCS: 93306

== ENCOUNTER 2023-03-13 17:13 | Outpatient (REF) | payer OTHER, SELFPAY ==
[2023-03-14 09:04] LABS: Abs Immature Grans 0.02 10^3/uL (0.0-0.06); Absolute Basophil Count 0.03 10^3/uL (0.0-0.2); Absolute Eosinophil Count 0.03 10^3/uL (0.0-0.7); Absolute Lymphocyte Count 0.97 10^3/uL (1.2-3.4); Absolute Monocyte Count 0.52 10^3/uL (0.1-0.8); Basophils % 0.5; Eosinophils % 0.5; HCT 31.6 % (36.0-46.0); HGB 10.9 g/dL (11.2-15.7); Immature Grans % 0.4; Lymphocytes % 17.4; MCH 34.1 pg (27.0-33.0); MCHC 34.5 % (32.0-36.0); MCV 99 fL (80-95); MPV 10.8 fL (8.0-11.0); Monocytes % 9.3; Neutrophils % 71.9; Platelet Count 180 10^3/uL (130-400); RDW 12.3 % (11.7-14.6); RDW-SD 43.9 fL; Reticulocyte 3.4 % (0.5-2.4); WBC 5.57 10^3/uL (4.4-10.8)
[2023-03-14 09:13] LABS: LDH 206 U/L (81-234)
[2023-03-14 09:53] LABS: Vitamin B12 1029 pg/mL (193-986)
[2023-03-14 18:59] LABS: Folate >24.0 ng/mL (See Note)
[2023-03-17 09:20] LABS: Haptoglobin 65 mg/dL (32-197)
== END 2023-03-13 17:14 | disposition home or self-care (01) ==
LOC: NCHCN 17:13
PROVIDERS: PCP Nurse Practitioner Family; Visit Provider Nurse Practitioner Family
DX: D64.9 Anemia, unspecified (principal); I77.810 Thoracic aortic ectasia; R07.89 Other chest pain; K76.0 Fatty (change of) liver, not elsewhere classified; R73.03 Prediabetes; G47.33 Obstructive sleep apnea (adult) (pediatric); D75.89 Other specified diseases of blood and blood-forming organs; R13.10 Dysphagia, unspecified
CPT/HCPCS: 82607; 82746; 83010; 83615; 85025; 85045

== ENCOUNTER → 2023-08-05 04:00 | Outpatient (CLI) | payer OTHER, SELFPAY ==
--- NOTE | 2023-08-05 08:00 | DI.MAMMO_ITS ---
Exam(s) MAMMO SCREENING EXAM: MAMMO SCREENING CLINICAL HISTORY: screening TECHNIQUE: Bilateral full field digital CC and MLO mammographic images were obtained with 3D tomosyn thesis and utilizing computer aided detection (CAD). COMPARISON: Available for comparison. FINDINGS: Masses/Architectural Distortion: None seen. Microcalcifications: No suspicious pleomorphic-type are seen. Skin Thickening/Nipple Retraction: None. IMPRESSION: 1. No significant interval change with no specific features of malignancy noted. 2. Unless there is more urgent need, screening mammography is recommended, as per [employer] guidelines. BI-RADS Category 1 - Negative Breast Density - Category B - Scattered areas of fibroglandular density Breast density category C or D implies that the patient has dense breast tissue. Dense breast tissue is very common and is not abnormal but dense breast tissue can make it harder to find cancer on a ma mmogram. Also, dense breast tissue may increase their breast cancer risk. This information about the result of the mammogram report was provided to the patient to raise their awareness. Use this report when you speak with the patient about their risks for breast cancer, which includes their family hist ory. At that time, you may recommend for more screening tests (Ultrasound or MRI) as they might be us eful based on their risk. A negative radiographic report should not delay biopsy if a dominant or clinically suspicious mass is present. Up to ten percent of cancers are not identified on mammography. A negative report may reinforce clinical impression. Adenosis and dense breasts may obscure an underlying neoplasm. False positive reports average 6 to 10%. Patient will receive a letter notifying them of these results.
== END ==
PROVIDERS: PCP Nurse Practitioner Family; Visit Provider Obstetrics & Gynecology Gynecology
DX: Z12.31 Encounter for screening mammogram for malignant neoplasm of breast (principal)
CPT/HCPCS: 77063; 77067

== ENCOUNTER → 2023-09-12 04:36 | Outpatient (CLI) | payer OTHER, SELFPAY ==
--- NOTE | 2023-09-12 | DI.US_ITS ---
Exam(s) US ABDOMEN LIMITED EXAM: US ABDOMEN LIMITED CLINICAL HISTORY: FATTY LIVER K76.0 STEATOSIS OF LIVER TECHNIQUE: Ultrasound abdomen performed using standard protocol. COMPARISON: US US ABDOMEN from 09/12/2022 US US ECHOCARDIOGRAM from 02/28/2023 FINDINGS: There is no ascites evident. LIVER: Liver is again noted be hyperechoic indicating fatty parenchymal change and is somewhat enlarg ed, measuring 20.5 cm. There is a small benign cyst in the left lobe measuring 11 x 9 mm. GALLBLADDER/BILIARY: There are no gallstones. No gallbladder wall edema nor pericholecystic fluid. The common hepatic duct isnot dilated, measuring 3-4mm at the level of barbara hepatis. PANCREAS: There is no evidence of pancreatic mass nor dilatation of the pancreatic duct. RIGHT KIDNEY:Normal size. There is an echogenic shadowing focus in the inferior pole measuring 15 mm consistent with calculus. No cortical cysts nor solid lesions evident in the kidney. IMPRESSION: 1. There is a 15 mm shadowing hyperechoic focus in lower pole the right kidney consistent with a non obstructive calculus. This was also evident on prior ultrasound 1 year ago. The opposite-left kidne y was not scanned on this dedicated right upper quadrant ultrasound. 2. Enlarged steatosis liver again noted. Contains small benign cyst in the left lobe measuring appr oximately 11 x 9 mm. 3. There is no ascites. DATA REPOSITORY:
== END ==
PROVIDERS: PCP Nurse Practitioner Family; Visit Provider Nurse Practitioner Family
DX: K76.0 Fatty (change of) liver, not elsewhere classified (principal)
CPT/HCPCS: 76705

== ENCOUNTER 2023-10-20 10:33 | Outpatient (REF) | payer OTHER, SELFPAY ==
[2023-10-20 15:02] LABS: HCT 33.1 % (36.0-46.0); HGB 11.3 g/dL (11.2-15.7); MCH 34.5 pg (27.0-33.0); MCHC 34.1 % (32.0-36.0); MCV 101 fL (80-95); MPV 10.8 fL (8.0-11.0); Platelet Count 191 10^3/uL (130-400); RBC 3.28 10^6/uL (3.93-5.22); RDW 12.3 % (11.7-14.6); WBC 4.76 10^3/uL (4.4-10.8)
[2023-10-20 15:23] LABS: ALT 31 U/L (14-59); AST 16 U/L (15-37); Alkaline Phosphatase 57 U/L (46-116); Anion Gap 11.4 mmol/L (3-11); BUN 17 mg/dL (7-18); Bilirubin, Total 0.7 mg/dL (0.2-1.0); CO2 24.6 mmol/L (21.0-32.0); CREATININE 0.9 mg/dL (0.55-1.02); Calcium 8.6 mg/dL (8.5-10.1); Chloride 107 mmol/L (98-107); Estimated GFR 67.08 (mL/min/1.73m2); Glucose 143 mg/dL (74-106); Potassium 4.1 mmol/L (3.5-5.1); Sodium 143 mmol/L (136-145); Total Protein 6.6 g/dL (6.4-8.2)
[2023-10-20 15:25] LABS: Hemoglobin A1C 5.8 % (<5.7)
== END 2023-10-20 10:34 | disposition home or self-care (01) ==
LOC: NCHCN 10:33
PROVIDERS: PCP Nurse Practitioner Family; Visit Provider Nurse Practitioner Family
DX: R73.03 Prediabetes (principal); K76.0 Fatty (change of) liver, not elsewhere classified
CPT/HCPCS: 80053; 85027; 83036

== ENCOUNTER 2024-02-22 17:15 | Emergency (ER) | payer OTHER, SELFPAY ==
[2024-02-22 17:18] VITALS: BP 158/58; PULSE 67; RESP 18; TEMP 36.4; O2SAT 98
--- NOTE | 2024-02-22 18:25 | ED.GENADUL_ITS ---
Discharge Plan Disposition Patient Disposition: Home Condition: Stable Discharge Details Clinical Impression: Pain, dental Primary Care Provider: Elina Fernandez ED Provider: Marah Lamas Home Meds and New Rx's Prescriptions: New Saccharomyces boulardii [Florastor] 250 mg capsule 250 mg PO BID Qty: 20 0RF clindamycin HCl 150 mg capsule 450 mg PO TID 10 Days Qty: 90 0RF Continued omeprazole 20 mg capsule,delayed release(DR/EC) 20 mg PO DAILY mecobalamin (vitamin B12) 1 tab PO DAILY Tumeric 1 tab PO calcium carbonate [Calcium 600] 600 mg calcium (1,500 mg) tablet 600 mg PO DAILY cholecalciferol (vitamin D3) 50 mcg (2,000 unit) capsule 50 mcg PO DAILY magnesium oxide 200 mg magnesium tablet 200 mg PO DAILY multivitamin 1 EACH tablet 1 tab PO DAILY atorvastatin [Lipitor] 10 MG tablet 10 mg PO DAILY Qty: 90 omega-3 fatty acids-fish oil [Fish Oil] 360-1,200 mg capsule 1 cap PO DAILY acetaminophen [Tylenol Arthritis Pain] 650 mg tablet extended release 1,300 mg PO DAILY PRN naproxen sodium [Aleve] 220 mg capsule 220 mg PO Q12H losartan 25 mg tablet 25 mg PO DAILY Discharge Instructions Instructions: Dental Pain (DC) Additional Instructions: take antibiotics as prescribed florastor (probiotic )while taking antibiotic f/u with oral surgeon at scheduled appt please return with worsening pain, swelling, fever, or should any new concerns arise Referrals: Elina Fernandez [Primary Care Provider] - Return if symptoms worsen HPI General Date/Time Provider Initiated Documentation: 02/22/24 17:26 . HPI Narrative: This 73-year-old female presents with report of dental pain, left second molar is reportedly infected and she is scheduled to have it extracted in [place] in approximately a week. Denies fever or chills. She states on antibiotics approximately 2 weeks ago and states the pain completely resolved with the antibiotics. She is asking that we refill antibiotics so that she may have some relief in her pain until she has the extraction. She denies any chest pain, shortness of breath, difficulty swallowing. Related Data Home Medications ?Medication ?Instructions ?Recorded ?Confirmed multivitamin 1 tab PO DAILY 08/28/12 02/22/24 atorvastatin 10 mg tablet (Lipitor) 10 mg PO DAILY #90 tab-caps 04/10/15 02/22/24 acetaminophen 650 mg 1,300 mg PO DAILY PRN 02/20/21 02/22/24 tablet,extended release (Tylenol Arthritis Pain) omega-3 fatty acids-fish oil 360 1 cap PO DAILY 02/20/21 02/22/24 mg-1,200 mg capsule (Fish Oil) Tumeric 1 tab PO 02/27/21 07/26/23 calcium carbonate (Calcium 600) 600 mg PO DAILY 02/27/21 02/22/24 cholecalciferol (vitamin D3) 50 50 mcg PO DAILY 02/27/21 02/22/24 mcg (2,000 unit) capsule mecobalamin (vitamin B12) 1 tab PO DAILY 04/01/23 02/22/24 omeprazole 20 mg capsule,delayed 20 mg PO DAILY 04/01/23 02/22/24 release magnesium oxide 200 mg PO DAILY 07/25/23 02/22/24 Saccharomyces boulardii 250 mg 250 mg PO BID #20 caps 02/22/24 capsule (Florastor) clindamycin HCl 150 mg capsule 450 mg (3 x 150 mg) PO TID 10 days 02/22/24 #90 caps losartan 25 mg tablet 25 mg PO DAILY 02/22/24 02/22/24 naproxen sodium 220 mg capsule 220 mg PO Q12H 02/22/24 02/22/24 (Aleve) Previous Rx's ?Medication ?Instructions ?Recorded Saccharomyces boulardii 250 mg 250 mg PO BID #20 caps 02/22/24 capsule (Florastor) clindamycin HCl 150 mg capsule 450 mg (3 x 150 mg) PO TID 10 days 02/22/24 #90 caps Allergies Allergy/AdvReac Type Severity Reaction Status Date / Time No Known Allergies Allergy Unverified 02/22/24 17:36 General Stated Complaint: DentalOral VERÓNICA: 4 Exam Narrative Exam Narrative: 73-year-old female alert and oriented, no significant distress, mild swelling to maxillary region on the left, second molar with erythema surrounding, no fluctuance or evidence of significant deep space infection. No trismus, oropharynx patent, uvula midline, Course Vital Signs Vital signs: Vital Signs Temperature 36.4 C L 02/22/24 17:18 Pulse 67 02/22/24 17:18 Respiratory Rate 18 02/22/24 17:18 Blood Pressure 158/58 H 02/22/24 17:18 Pulse Oximetry 98 02/22/24 17:18 Temperature 36.4 C L 02/22/24 17:18 Temperature Source Oral 02/22/24 17:18 Pulse 67 02/22/24 17:18 Respiratory Rate 18 02/22/24 17:18 Respiratory Effort Normal, Non-Labored 02/22/24 17:24 Blood Pressure 158/58 H 02/22/24 17:18 Pulse Oximetry 98 02/22/24 17:18 Oxygen Delivery Method Room Air 02/22/24 17:18 Oxygen Flow Rate 0 02/22/24 17:18 Procedures Nerve Block Nerve Block 1: Local Anesthetic: Bupivicaine 0.5% Amount of anesthesia used (mL): 3 Side: left Intraoral Nerve Block: superior alveolar Procedure Successful: Yes Patient Tolerated Procedure: well and no complications Medical Decision Making This 73-year-old female presents with left second molar pain and likely infection. Will initiate clindamycin and dental block. Superior alveolar nerve block performed with improvement in symptoms. Will place on clindamycin and Florastor. Patient has an appointment with oral surgery in 7 days, she is encouraged to take the antibiotic until that time. There is no evidence of Baldemar's angina. Return precautions reviewed and patient expressed understanding Quality:SDOH Health Related Social Needs: No Data to Display PFSH All Active Problems (Updated 02/22/24 @ 18:28 by MARKEL Rehman) Pain, dental (Acute) Asymmetrical sensorineural hearing loss (Acute) Tinnitus, bilateral (Acute) Mixed conductive and sensorineural hearing loss of left ear with restricted he aring of right ear (Acute) Sensorineural hearing loss, bilateral (Acute) Ventricular bigeminy (Acute) Decreased hearing (Acute) Prediabetes (Acute) Atrial enlargement, left (Acute) Left shoulder pain (Acute) Elbow pain, right (Acute) Restless leg syndrome (Acute) Macrocytosis (Acute) Stress incontinence (Acute) Sinusitis (Acute) Fatigue (Acute) Hypocalcemia (Acute) Tubular adenoma of colon (Acute) Breast cancer screening by mammogram (Acute) 03/17/20. Nl imaging. repeat diagnostic mammo 09/2020 Vaginal atrophy (Acute) Obstructive sleep apnea (Acute) 01/2019. Has not been using appliance has issues with things covering her face. Anemia (Acute 10/17/14) Benign colonic polyp (Acute 09/20/16) 2011 [facility] 2014 [facility] tubular adenoma & sessile serrated adenoma. Diverticulosis (Acute) 01/10/15; [facility] External hemorrhoids (Acute) 01/10/15; [facility] Hyperlipidemia (Acute 08/08/15) treated with a good response. Osteoarthritis (Acute) Osteopenia of multiple sites (Acute 09/23/17) 2015 Lumbar spine -2.2, L femoral neck -1.2, L forearm -2.1. Takes calcium and vitamin D supplement. Other idiopathic scoliosis, thoracolumbar region (Acute 09/20/16) Polyp of colon (Acute) 01/10/15; [facility] 4 POLYPS Skin nodule (Acute 08/08/15) Urticaria (Acute) Ventricular arrhythmia (Acute) Medical History Polyp, colonic 2011 [facility]. 02/2015 [facility] tubular adenoma & sessile serrated adenoma. Q3yr colonoscopy recommened. GERD (gastroesophageal reflux disease) Osteopenia 2015 Lumbar spine -2.2, L femoral neck -1.2, L forearm -2.1. Hyperlipidemia good response to statins. 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 Surgical History History of surgical procedure on mouth Cleft Palate Surgery, as child, and in 30's Ligation of fallopian tube Extraction of cataract 2008 Family History Father Liver cancer Mother Hypertension Pancreatic cancer Other Diabetes Heart disease Personal history of malignant neoplasm Social History Smoking/Tobacco Use Status: Former Tobacco Use Second Hand Exposure: No Smoking risk assessment performed?: Yes Alcohol Intake: current Alcohol Intake frequency: a few times a month Drug use: Never Substance use type: does not use Adopted: No Household members: spouse and other Details: Nikhil. Retired. Drives [employer] Housing: house Number of Children: 2 current occupation: retired occupational therapist. worked in the schools What type of physical activity do you participate in: other Details: square dancing 2x/week Elda/Yarsanism: Islam Seatbelt use: always Do you feel safe at home: Yes Do you feel safe in your relationship?: Yes Additional Social history: 01/2019 Daughter Ana: benign hepatoma. Will undergo an open removal. (works as PT for home health) SonBrody Espinoza (senior validation engineer) x2. History History 3 Para Hx # Term Pregnancies 2 Multiple births Hx # Pregnancies Ectopic pregnancies AB induced Hx Number of Living Children AB spontaneous PAWSS Have you Been Recently Intoxicated or Drunk Within the Last 30 days?: No Have you Ever Experienced Previous Episodes of Alcohol Withdrawal?: No Have you ever Experienced Withdrawal Seizures?: No Have you ever Experienced Delirium Tremens(DT)s?: No Have you ever undergone Alcohol Rehabilitation Treatment (i.e, inpt ot outpatient treatment programs)?: No Have you ever Experienced Blackouts?: No Have you ever Combined Alcohol with other Downers within the last 90 days?: No Have you ever Combined Alcohol with any other Substance of Abuse during the last 90 days?: No Result: 0
[2024-02-22] MEDS: Clindamycin 150 MG CAP, 12 CAPS/BTL 450 MG PO (18:33)
[2024-02-22] MEDS: Benzocaine 20% Gel 30 GM JAR MM (18:33)
[2024-02-22 18:44] VITALS: BP 125/90; PULSE 82; RESP 16; O2SAT 95
== END 2024-02-22 18:44 | disposition home or self-care (01) ==
PROVIDERS: Emergency Provider Physician Assistant; PCP Nurse Practitioner Family
DX: R68.84 Jaw pain (principal); K08.89 Other specified disorders of teeth and supporting structures
CPT/HCPCS: 64400

== ENCOUNTER 2024-08-18 01:17 | Outpatient (CLI) | payer OTHER, SELFPAY ==
--- NOTE | 2024-08-18 08:30 | DI.MAMMO_ITS ---
Exam(s) MAMMO SCREENING EXAM: MAMMO SCREENING CLINICAL HISTORY: screening TECHNIQUE: Bilateral full field digital CC and MLO mammographic images were obtained with 3D tomosyn thesis and utilizing computer aided detection (CAD). COMPARISON: Available for comparison. FINDINGS: Masses/Architectural Distortion: No suspicious masses or areas of architectural distortion are presen t. Microcalcifications: No suspicious pleomorphic-type are seen. Skin Thickening/Nipple Retraction: None. IMPRESSION: 1. No significant interval change with no specific features of malignancy noted. 2. Unless there is more urgent need, screening mammography is recommended, as per [employer] guidelines. BI-RADS Category 1 - Negative Breast Density - Category B - Scattered areas of fibroglandular density Breast density category C or D implies that the patient has dense breast tissue. Dense breast tissue is very common and is not abnormal but dense breast tissue can make it harder to find cancer on a ma mmogram. Also, dense breast tissue may increase their breast cancer risk. This information about the result of the mammogram report was provided to the patient to raise their awareness. Use this report when you speak with the patient about their risks for breast cancer, which includes their family hist ory. At that time, you may recommend for more screening tests (Ultrasound or MRI) as they might be us eful based on their risk. A negative radiographic report should not delay biopsy if a dominant or clinically suspicious mass is present. Up to ten percent of cancers are not identified on mammography. A negative report may reinforce clinical impression. Adenosis and dense breasts may obscure an underlying neoplasm. False positive reports average 6 to 10%. Patient will receive a letter notifying them of these results.
== END 2024-08-18 01:37 ==
LOC: DI 01:17
PROVIDERS: PCP Nurse Practitioner Family; Visit Provider Obstetrics & Gynecology
DX: Z12.31 Encounter for screening mammogram for malignant neoplasm of breast (principal); R92.323 Mammographic fibroglandular density, bilateral breasts
CPT/HCPCS: 77063; 77067

== ENCOUNTER 2024-10-11 03:08 | Outpatient (CLI) | payer OTHER, SELFPAY ==
--- NOTE | 2024-10-11 | DI.RAD_ITS ---
Exam(s) XR ELBOW RT COMPLETE EXAM: XR ELBOW RT COMPLETE CLINICAL HISTORY: Pain in rt elbow, M25.521. TECHNIQUE: 2D digital imaging was performed of the left elbow. Three images were obtained. AP, lat eral and oblique views were obtained. COMPARISON: No exams were available for comparison FINDINGS: BONES: No acute fracture is present. No bony destructive lesion is seen. There is a chronic deformity of the radial head with prominent osteophyte. There is a bony protuberance/loose body seen anterior to the distal humerus on the lateral view. It is uncertain from which bone this arises. It may be a loose body or arise from the distal humerus. JOINTS: The elbow is normally aligned. No joint effusion is seen. SOFT TISSUE: Normal. IMPRESSION: 1. No acute abnormality. 2. Chronic spurring seen of the radial head. 3. Bony protuberance/loose body seen anteriorly on the lateral view. A CT scan of the elbow should b e considered for further characterization. DATA REPOSITORY: RADIATION DOSE DELIVERED:
== END 2024-10-11 03:28 ==
LOC: DI 03:08
PROVIDERS: PCP Nurse Practitioner Family; Visit Provider Nurse Practitioner Family
DX: M25.521 Pain in right elbow (principal); R93.89 Abnormal findings on diagnostic imaging of other specified body structures
CPT/HCPCS: 73080

== ENCOUNTER 2024-10-19 14:43 | Outpatient (REF) | payer OTHER, SELFPAY ==
[2024-10-19 15:22] LABS: Abs Immature Grans 0.01 10^3/uL (0.0-0.06); Absolute Basophil Count 0.03 10^3/uL (0.0-0.2); Absolute Monocyte Count 0.25 10^3/uL (0.1-0.8); Absolute Neutrophil Count 2.59 10^3/uL (1.2-6.7); Basophils % 0.6 %; HCT 34.2 % (36.0-46.0); HGB 11.7 g/dL (11.2-15.7); Immature Grans % 0.2 %; Lymphocytes % 41.3 %; MCH 34.5 pg (27.0-33.0); MCHC 34.2 % (32.0-36.0); MCV 101 fL (80-95); MPV 10.7 fL (8.0-11.0); Monocytes % 4.9 %; Platelet Count 215 10^3/uL (130-400); RBC 3.39 10^6/uL (3.93-5.22); RDW 12.6 % (11.7-14.6); RDW-SD 45.3 fL; WBC 5.08 10^3/uL (4.4-10.8)
[2024-10-19 15:41] LABS: Hemoglobin A1C 5.8 % (<5.7)
[2024-10-19 16:13] LABS: ALT 38 U/L (14-59); AST 22 U/L (15-37); Albumin 4.8 g/dL (3.4-5.0); Alkaline Phosphatase 63 U/L (46-116); Anion Gap 11.4 mmol/L (3-11); BUN 24 mg/dL (7-18); Bilirubin, Total 0.9 mg/dL (0.2-1.0); CO2 25.6 mmol/L (21.0-32.0); CREATININE 0.9 mg/dL (0.55-1.02); Calcium 9.5 mg/dL (8.5-10.1); Chloride 104 mmol/L (98-107); Estimated GFR 66.67 (mL/min/1.73m2); Glucose 111 mg/dL (74-106); Magnesium 2.2 mg/dL (1.8-2.4); Potassium 4.1 mmol/L (3.5-5.1); Sodium 141 mmol/L (136-145); Total Protein 7.6 g/dL (6.4-8.2); Vitamin B12 1808 pg/mL (193-986)
== END 2024-10-19 14:44 | disposition home or self-care (01) ==
LOC: NCHCN 14:43
PROVIDERS: PCP Nurse Practitioner Family; Visit Provider Nurse Practitioner Family
DX: K76.0 Fatty (change of) liver, not elsewhere classified (principal); K21.9 Gastro-esophageal reflux disease without esophagitis; R73.03 Prediabetes
CPT/HCPCS: 80053; 82607; 83036; 83735; 85025